=== PATIENT | female | born 1990 | race Caucasian/White ===

== ENCOUNTER 2022-03-26 15:34 | Emergency (ER) | payer OTHER ==
[2022-03-26 15:43] VITALS: BP 132/78; PULSE 79; RESP 18; TEMP 98.1; BMI 22.1
[2022-03-26] MEDS ORDERED: SODIUM CHLORIDE 1,000 ML IV STA (17:23)
[2022-03-26] MEDS ORDERED: DOCUSATE SODIUM 100 MG CAPSULE (FP) PO ONE ×2 (17:27→17:36)
[2022-03-26] MEDS ORDERED: ACETAMINOPHEN 1000 MG/100 ML BAG IVPB ONE (17:32)
[2022-03-26] MEDS ORDERED: SENNOSIDES 8.6MG TABLET (FP) PO ONE ×2 (17:35→17:40)
[2022-03-26] MEDS ORDERED: ACETAMINOPHEN INJECTION 100 ML IVPB ONE (17:36)
[2022-03-26 17:55] LABS: BASO % 0.3 % (0-2.0); EOS % 0.2 % (0-4.5); HEMATOCRIT 33.1 % (32.4-45.2); HEMOGLOBIN 11.4 GM/dL (10.7-15.3); LYMPH % 14.2 % (8-40); MCH 32.2 pg (25.7-33.7); MCHC 34.4 g/dl (32.0-36.0); MEAN CELL VOLUME 93.6 fl (80-96); MEAN PLT VOLUME 8.2 fl (7.5-11.1); MONO % 4.5 % (3.8-10.2); NEUT % 80.8 % (42.8-82.8); PLATELET COUNT 258 10^3/uL (134-434); RBC 3.53 M/mm3 (3.60-5.2); WHITE BLOOD COUNT 13.7 K/mm3 (4.0-10.0)
[2022-03-26 18:00] LABS: EPI CELLS 8 /uL (0-25.1); HYALINE CASTS 0 /uL (0-3.1); PH,URINE 6.5 (5.0-8.0); URINE APPEARANCE CLEAR; URINE BACTERIA 966 /uL (0-1359); URINE BILIRUBIN NEGATIVE (NEGATIVE); URINE COLOR YELLOW; URINE GLUCOSE (UA) NEGATIVE (NEGATIVE); URINE KETONE NEGATIVE (NEGATIVE); URINE LEUK ESTERASE TRACE (NEGATIVE); URINE NITRITE NEGATIVE (NEGATIVE); URINE PROTEIN NEGATIVE (NEGATIVE); URINE RBC 2 /uL (0-23.9); URINE UROBILINOGEN 0.2 mg/dL (0.2-1.0); URINE WBC 24 /uL (0-25.8)
[2022-03-26 18:14] LABS: BLOOD UREA NITROGEN 7.8 mg/dL (7-18); CALCIUM 9.1 mg/dL (8.5-10.1)
[2022-03-26 18:15] LABS: ALBUMIN 3.2 g/dl (3.4-5.0)
[2022-03-26 18:17] LABS: CREATININE 0.7 mg/dL (0.55-1.3)
[2022-03-26 18:19] LABS: BILIRUBIN,TOTAL 0.4 mg/dL (0.2-1); TOT PROT 7.8 g/dl (6.4-8.2)
== END 2022-03-26 20:37 | disposition home or self-care (01) ==
LOC: JER 15:34
PROC: 3E0333Z Introduction of Anti-inflammatory into Peripheral Vein, Percutaneous Approach (ICD-10-PCS; principal; 2022-03-26)
PROC: 3E0337Z Introduction of Electrolytic and Water Balance Substance into Peripheral Vein, Percutaneous Approach (ICD-10-PCS; 2022-03-26)
DX: O23.12 Infections of bladder in pregnancy, second trimester (principal); O99.612 Diseases of the digestive system complicating pregnancy, second trimester; N30.00 Acute cystitis without hematuria; K59.00 Constipation, unspecified; Z3A.17 17 weeks gestation of pregnancy
CPT/HCPCS: 36415; 76815-TC; 80053; 81003; 83690; 84702; 85025; 86140; 87086; 99285-25

== ENCOUNTER 2022-07-22 09:18 | Inpatient (IN) | payer OTHER ==
[2022-07-22] MEDS ORDERED: BUTORPHANOL TARTRATE 1 MG/ML VIAL IVPB ONE (10:49)
[2022-07-22] MEDS ORDERED: PROMETHAZINE HCL 25 MG/1 ML VIAL IVPUSH ONE (10:49)
[2022-07-22 10:51] LABS: BASO % 0.2 % (0-2.0); EOS % 0.3 % (0-4.5); HEMATOCRIT 30.6 % (32.4-45.2); HEMOGLOBIN 10.2 GM/dL (10.7-15.3); LYMPH % 10.6 % (8-40); MCH 29.5 pg (25.7-33.7); MCHC 33.4 g/dl (32.0-36.0); MEAN CELL VOLUME 88.3 fl (80-96); MEAN PLT VOLUME 8.6 fl (7.5-11.1); MONO % 6.6 % (3.8-10.2); NEUT % 82.3 % (42.8-82.8); PLATELET COUNT 252 10^3/uL (134-434); RBC 3.47 M/mm3 (3.60-5.2); RDW 15.2 % (11.6-15.6); WHITE BLOOD COUNT 14.2 K/mm3 (4.0-10.0)
[2022-07-22 10:53] LABS: INR 0.96 (0.83-1.09)
[2022-07-22] MEDS ORDERED: AMPICILLIN - 2 GM in SODIUM CHLORIDE 100 ML IVPB ONE (10:54)
[2022-07-22 10:56] LABS: ACTIVATED PTT 28.5 SECONDS (25.2-36.5)
[2022-07-22] MEDS ORDERED: DEXTROSE 5%-LACTATED RINGERS 1,000 ML IV SCH (11:00)
[2022-07-22 11:01] VITALS: BMI 25.5
[2022-07-22 11:03] LABS: CALCIUM 9.3 mg/dL (8.5-10.1)
[2022-07-22] MEDS ORDERED: AMPICILLIN SODIUM 2 GM VIAL ONE (11:03)
[2022-07-22 11:04] LABS: BLOOD UREA NITROGEN 7.8 mg/dL (7-18)
[2022-07-22 11:07] LABS: CREATININE 0.6 mg/dL (0.55-1.3)
[2022-07-22] MEDS ORDERED: MISOPROSTOL 25 MCG TABLET (COMPOUNDED BY PHARMACY) PO ONE (11:30)
[2022-07-22] MEDS ORDERED: AMPICILLIN - 1 GM in SODIUM CHLORIDE 100 ML IVPB SCH (15:00)
[2022-07-22] MEDS ORDERED: AMPICILLIN SODIUM 1 GM VIAL ONE (15:18)
[2022-07-22] MEDS ORDERED: FENTANYL/BUPIVACAINE/NS/PF - PCEA - 50 ML DISP.SYRIN EP ONE (15:21)
[2022-07-22] MEDS ORDERED: NALOXONE HCL 0.4 MG/ML VIAL IVPUSH PRN (15:26)
[2022-07-22] MEDS ORDERED: FENTANYL/BUPIVACAINE/NS/PF - PCEA - 50 ML DISP.SYRIN EP SCH (15:30)
[2022-07-22] MEDS ORDERED: ELECTROLYTE-148 SOLN 1,000 ML IV SCH (15:30)
[2022-07-22] MEDS ORDERED: BUPIVACAINE HCL/PF 0.25% (2.5MG/ML) 10 ML VIAL ONE (15:31)
[2022-07-22 15:38] LABS: OPIATES, URI NEGATIVE (NEGATIVE)
[2022-07-22 15:39] LABS: COCAINE, UR NEGATIVE (NEGATIVE); METHADONE, UR NEGATIVE (NEGATIVE); PHENCYCLIDINE,URINE NEGATIVE (NEGATIVE); URINE AMPHETAMINES NEGATIVE (NEGATIVE); URINE BARBITURATES NEGATIVE (NEGATIVE); URINE BENZODIAZEPINES NEGATIVE (NEGATIVE)
[2022-07-22 16:13] VITALS: RESP 18
[2022-07-22] MEDS ORDERED: OXYTOCIN 30 UNITS in 0.9% NS 30 UNIT/500 ML INFUS.BAG IVPB SCH (16:15)
[2022-07-22] MEDS ORDERED: OXYTOCIN 30 UNITS in 0.9% NS 30 UNIT/500 ML INFUS.BAG IVPB ONE (16:26)
[2022-07-22] MEDS ORDERED: OXYTOCIN 20 UNITS in 0.9% NS 20 UNIT/1,000 ML INFUS.BAG IV ONE (18:10)
[2022-07-22] MEDS ORDERED: LIDOCAINE HCL 1% PRESERVATIVE FREE - 30ML VIAL ONE (18:10)
[2022-07-22 19:15] LABS: CORD BASE EXCESS -0.4 mmol/L (0-2); CORD HCO3 26.4 mmHg (20-29); CORD PCO2 50.8 mmHg (30-78); CORD pH 7.333 (7.14-7.44)
[2022-07-22 19:20] LABS: CORD BASE EXCESS -3.9 mmol/L (0-2); CORD HCO3 24.4 mmHg (20-29); CORD pH 7.249 (7.14-7.44)
[2022-07-22] MEDS ORDERED: BISACODYL 10 MG SUPP.RECT RC PRN (19:21)
[2022-07-22] MEDS ORDERED: WITCH HAZEL 50% (TUCKS) 40 PAD/JAR PAD TP PRN (19:21)
[2022-07-22] MEDS ORDERED: BENZOCAINE 20% 57 GM BOTTLE TP PRN (19:21)
[2022-07-22] MEDS ORDERED: ACETAMINOPHEN 325 MG TABLET (FP) PO PRN (19:21)
[2022-07-22] MEDS ORDERED: METHYLERGONOVINE MALEATE 0.2 MG/1 ML AMP IM PRN (19:21)
[2022-07-22] MEDS ORDERED: oxyCODONE HCL 5 MG TABLET PO PRN (19:21)
[2022-07-22] MEDS ORDERED: BENZOCAINE 28 GM HEMORRHOIDAL OINTMENT TP PRN (19:21)
[2022-07-22] MEDS ORDERED: OXYTOCIN 20 UNITS in 0.9% NS 20 UNIT/1,000 ML INFUS.BAG IV SCH (19:30)
[2022-07-22] MEDS ORDERED: IBUPROFEN 600 MG TABLET (FP) PO ONE (20:43)
[2022-07-22] MEDS: IBUPROFEN 600 MG TABLET (FP) PO PRN (20:50)
[2022-07-23] MEDS: IBUPROFEN 600 MG TABLET (FP) PO PRN ×3 (00:35→19:59)
[2022-07-23 07:12] LABS: BASO % 0.4 % (0-2.0); EOS % 0.6 % (0-4.5); HEMATOCRIT 27.4 % (32.4-45.2); HEMOGLOBIN 9.2 GM/dL (10.7-15.3); LYMPH % 13.9 % (8-40); MCH 30.2 pg (25.7-33.7); MCHC 33.7 g/dl (32.0-36.0); MEAN CELL VOLUME 89.6 fl (80-96); MONO % 8.3 % (3.8-10.2); NEUT % 76.8 % (42.8-82.8); PLATELET COUNT 199 10^3/uL (134-434); RBC 3.06 M/mm3 (3.60-5.2); RDW 15.3 % (11.6-15.6); WHITE BLOOD COUNT 13.1 K/mm3 (4.0-10.0)
[2022-07-23] MEDS: FERROUS SO4 325 MG TABLET (FP) PO SCH ×2 (08:39→18:19)
[2022-07-23 09:23] LABS: BASO % 0.3 % (0-2.0); EOS % 0.4 % (0-4.5); HEMATOCRIT 30.7 % (32.4-45.2); HEMOGLOBIN 10.4 GM/dL (10.7-15.3); LYMPH % 12.8 % (8-40); MCH 30.3 pg (25.7-33.7); MCHC 33.9 g/dl (32.0-36.0); MEAN CELL VOLUME 89.2 fl (80-96); MEAN PLT VOLUME 8.1 fl (7.5-11.1); NEUT % 78.5 % (42.8-82.8); PLATELET COUNT 218 10^3/uL (134-434); RBC 3.45 M/mm3 (3.60-5.2); RDW 15.5 % (11.6-15.6); WHITE BLOOD COUNT 13.5 K/mm3 (4.0-10.0)
[2022-07-23] MEDS: PRENATAL VITAMINS W/ FOLIC ACID TABLET (FP) PO SCH (11:13)
[2022-07-23] MEDS: SENNOSIDES/DOCUSATE COMBO (SENNA PLUS) TABLET (UD) PO PRN (19:59)
[2022-07-24] MEDS: FERROUS SO4 325 MG TABLET (FP) PO SCH ×2 (08:29→17:23)
[2022-07-24] MEDS: IBUPROFEN 600 MG TABLET (FP) PO PRN ×3 (10:08→22:16)
[2022-07-24] MEDS: PRENATAL VITAMINS W/ FOLIC ACID TABLET (FP) PO SCH (10:08)
[2022-07-24 22:15] VITALS: PULSE 84; TEMP 98
[2022-07-24] MEDS: SENNOSIDES/DOCUSATE COMBO (SENNA PLUS) TABLET (UD) PO PRN (22:16)
[2022-07-25] MEDS: FERROUS SO4 325 MG TABLET (FP) PO SCH (08:33)
[2022-07-25] MEDS: IBUPROFEN 600 MG TABLET (FP) PO PRN (08:33)
[2022-07-25 09:35] VITALS: BP 120/60
[2022-07-25] MEDS: PRENATAL VITAMINS W/ FOLIC ACID TABLET (FP) PO SCH (10:37)
[2022-07-25 13:26] LABS: POC NITRAZINE POS
== END 2022-07-25 15:30 | disposition home or self-care (01) | DRG 805 ==
LOC: JLDR 09:18 → J3W 21:24
PROVIDERS: ADMIT Obstetrics & Gynecology; ATTEND Obstetrics & Gynecology
PROC: 10E0XZZ Delivery of Products of Conception, External Approach (ICD-10-PCS; principal; 2022-07-22)
PROC: 0HQ9XZZ Repair Perineum Skin, External Approach (ICD-10-PCS; 2022-07-22)
PROC: 0W8NXZZ Division of Female Perineum, External Approach (ICD-10-PCS; 2022-07-22)
DX: O70.0 First degree perineal laceration during delivery (principal); U07.1 COVID-19; Z37.0 Single live birth; O99.323 Drug use complicating pregnancy, third trimester; O98.513 Other viral diseases complicating pregnancy, third trimester; O42.913 Preterm premature rupture of membranes, unspecified as to length of time between rupture and onset of labor, third trimester; F12.10 Cannabis abuse, uncomplicated; Z3A.36 36 weeks gestation of pregnancy
CPT/HCPCS: 36415; 36600; 59409; 80048; 80307; 82803; 83986-QW; 85025; 85610; 85730; 86780; 86850; 86870; 86900; 86901; 86902; C9803-CS; U0003; U0005

== ENCOUNTER 2023-10-14 10:55 | Emergency (ER) | payer OTHER ==
[2023-10-14 11:04] VITALS: BP 112/67; PULSE 57; RESP 18; TEMP 98.4; BMI 28.7
[2023-10-14 11:52] LABS: EPI CELLS 3 /uL (0-25.1); HYALINE CASTS 0 /uL (0-3.1); URINE APPEARANCE CLEAR; URINE BACTERIA 103 /uL (0-1359); URINE BILIRUBIN NEGATIVE (NEGATIVE); URINE COLOR YELLOW; URINE GLUCOSE (UA) NEGATIVE (NEGATIVE); URINE KETONE NEGATIVE (NEGATIVE); URINE LEUK ESTERASE NEGATIVE (NEGATIVE); URINE NITRITE NEGATIVE (NEGATIVE); URINE PROTEIN NEGATIVE (NEGATIVE); URINE RBC 6 /uL (0-23.9); URINE UROBILINOGEN 0.2 mg/dL (0.2-1.0); URINE WBC 4 /uL (0-25.8)
[2023-10-14 11:53] LABS: BASO % 0.5 % (0-2.0); EOS % 0.7 % (0-4.5); HEMATOCRIT 36.6 % (32.4-45.2); HEMOGLOBIN 12.5 GM/dL (10.7-15.3); LYMPH % 19.1 % (8-40); MCH 30.2 pg (25.7-33.7); MCHC 34.2 g/dl (32.0-36.0); MEAN CELL VOLUME 88.2 fl (80-96); MEAN PLT VOLUME 8.2 fl (7.5-11.1); MONO % 4.1 % (3.8-10.2); NEUT % 75.6 % (42.8-82.8); PLATELET COUNT 182 10^3/uL (134-434); RBC 4.14 M/mm3 (3.60-5.2); RDW 16.2 % (11.6-15.6)
[2023-10-14 12:24] LABS: CHLORIDE 110 mmol/L (98-107); POTASSIUM 4.1 mmol/L (3.5-5.1); SODIUM 141 mmol/L (136-145)
[2023-10-14 12:26] LABS: CALCIUM 9.3 mg/dL (8.5-10.1); GLUCOSE,RANDOM 101 mg/dL (74-106)
[2023-10-14 12:27] LABS: ALBUMIN 3.8 g/dl (3.4-5.0); ANION GAP 4 mmol/L (4-13); CO2 27 mmol/L (21-32)
[2023-10-14 12:30] LABS: CREATININE 0.7 mg/dL (0.55-1.3); SGOT/AST 15 U/L (15-37); SGPT/ALT 12 U/L (13-61)
[2023-10-14 12:32] LABS: BILIRUBIN,TOTAL 0.3 mg/dL (0.2-1)
[2023-10-14 12:33] LABS: ALK PHOS 76 U/L (45-117)
== END 2023-10-14 12:23 | disposition home or self-care (01) ==
LOC: JERFT 10:55
DX: N92.0 Excessive and frequent menstruation with regular cycle (principal)
CPT/HCPCS: 36415; 80053; 81003; 84702; 84703; 85025; 86850; 86900; 86901; 87086; 99283-25